=== PATIENT | female | born 1955 | race Caucasian/White ===

== ENCOUNTER → 2016-10-28 | Outpatient (CLI) | payer OTHER ==
[~2016-10-28] MED LIST: NO HOME MEDICATIONS
== END ==
LOC: BHSO 09:29
DX: F33.1 Major depressive disorder, recurrent, moderate (principal)

== ENCOUNTER → 2017-01-24 | Outpatient (CLI) | payer OTHER | LOC: BHSO 10:37 | DX: F33.41 Major depressive disorder, recurrent, in partial remission (principal) ==

== ENCOUNTER → 2018-02-21 | Outpatient (CLI) | payer OTHER | LOC: BHSO 09:16 | DX: F33.41 Major depressive disorder, recurrent, in partial remission (principal) | CPT/HCPCS: G0463 ==